=== PATIENT | male | born 1990 | race Caucasian/White ===

== ENCOUNTER 2018-09-30 11:09 | Emergency (ER) | payer MEDICARE, OTHER ==
[2018-09-30] MEDS: ALBUTEROL 0.5% (NEB) 2.5 MG/0.5 ML AMP INH ×2 (12:08→13:51)
[2018-09-30] MEDS: IPRATROPIUM (NEB) 0.5 MG/2.5 ML AMP INH (12:08)
== END 2018-09-30 15:02 | disposition home or self-care (01) ==
LOC: FTE 11:09
DX: J45.901 Unspecified asthma with (acute) exacerbation (principal); F17.210 Nicotine dependence, cigarettes, uncomplicated
CPT/HCPCS: 71045; 94644; 94645; 99284-25